=== PATIENT | female | born 1960 | race Caucasian/White ===

== ENCOUNTER 2018-06-16 09:08 | Emergency (ER) | payer BC ==
[~2018-06-16] VITALS: Ht 160 cm; Wt 90.7 kg
[2018-06-16] MEDS ORDERED: NORCO 5-325 TA1 EACH PO (11:29)
[2018-06-16] MEDS ORDERED: IBU800 MG PO (11:29)
== END 2018-06-16 12:44 | disposition home or self-care (01) ==
LOC: ED 09:08
DX: S82.301A Unspecified fracture of lower end of right tibia, initial encounter for closed fracture (principal); S82.831A Other fracture of upper and lower end of right fibula, initial encounter for closed fracture; I48.91 Unspecified atrial fibrillation; M25.551 Pain in right hip; E03.9 Hypothyroidism, unspecified; W10.8XXA Fall (on) (from) other stairs and steps, initial encounter; Y93.01 Activity, walking, marching and hiking; Y92.89 Other specified places as the place of occurrence of the external cause; Y99.8 Other external cause status